=== PATIENT | female | born 1955 | race Caucasian/White ===

== ENCOUNTER 2016-12-17 08:12 | Day surgery (SDC) | payer OTHER ==
--- NOTE | 2016-11-21 07:17 | PCM.HPANE ---
Patient Data Surgeon Admitting Provider: Attending Provider:Anton Arias MD Primary Care Physician:Gabriela Green MD Other Provider: Reason for Visit Barretts Esophagus Ht/WT & BMI Body Mass Index Allergies Coded Allergies: cortisone (Verified Allergy, Intermediate, 11/21/13) prednisone (Verified Allergy, Intermediate, 11/21/13) iodine (Verified Allergy, Mild, Shortness of Breath, 08/16/16) Patient needs to be pretreated for any iodine injections. acetaminophen (Verified Allergy, Unknown, 08/08/15) caffeine (Verified Allergy, Unknown, 11/20/16) codeine (Verified Allergy, Unknown, 08/08/15) ergotamine (Verified Allergy, Unknown, 11/20/16) ketorolac (Verified Allergy, Unknown, 11/20/16) morphine (Verified Allergy, Unknown, 08/08/15) oxycodone (Verified Allergy, Unknown, 08/08/15) shellfish derived (Verified Allergy, Unknown, 08/08/15) theophylline anhydrous (Verified Allergy, Unknown, 08/08/15) tromethamine (Verified Allergy, Unknown, 11/20/16) Uncoded Allergies: CATAGORT (Allergy, Unknown, 01/03/13) Past Anesthesia History Anesthesia History: Positive for:: Anesthesia Reactions (WOKE UP YEARS AGO ), Denies:: Abnormal Airway, Difficult Intubation, Fam Anesthesia Reaction, Fam Malignant Hypertherm, Malignant Hyperthermia Diabetes History Hx Diabetes?: No MRSA MRSA: No Medications Blood Thinner: Aspirin Reported Medications Naproxen Sodium (Aleve)220 Mg Umvempn473 Mg PO BID 12/14/16 Albuterol HFA (Proair HFA)8.5 Gm Hfa.aer.ad2 Puffs INHALATION Q4H #1 INHALER 12/14/16 Fexofenadine (Larisa Allergy)180 Mg Vsvbkf254 Mg PO DAILY Ref 0 11/20/16 Sennosides (Laxative)15 Mg Tab.chew5 Mg PO 11/20/16 Magnesium 200 Mg Eqcggo403 Mg PO 11/20/16 Pravastatin 10 Mg Fcbnyb13 Mg PO HS Ref 0 11/20/16 Prochlorperazine Maleate (Prochlorperazine)10 Mg Tpzwmx35 Mg PO Q8 PRN For Nausea/Vomiting Ref 0 11/20/16 Levothyroxine (Synthroid)100 Mcg Lqrgdw141 Mcg PO DAILY Ref 0 11/20/16 Aspirin 325 Mg Ubisvr132 Mg PO DAILY #1 BOTTLE 08/16/16 Omeprazole 20 Mg Tablet.dr40 Mg PO BID Ref 0 08/08/15 Multivitamin (Multi Vitamin Daily)1 Each Tablet1 Each PO DAILY 30 Days Ref 0 08/08/15 Metoprolol Tartrate 25 Mg Svoghx29 Mg PO BID 30 Days Ref 0 08/08/15 Citalopram 20 Mg Rjalch15 Mg PO DAILY Ref 0 08/08/15 Alprazolam 0.5 Mg Tablet0.5 Mg PO 000 PRN For Anxiety Ref 0 08/08/15 History History of ENT Problems?: No HEENT History: Denies:: Abnormal Airway Difficult Intubation Dysphagia Hearing Problem Hx of Heart Problems?: Yes Cardiovascular History: Positive for:: Hypertension (METROPOLOL) Denies:: AICD Atrial Fibrillation Chest Pain Congestive Heart Failure Irregular Heartbeat Pacemaker Valvular Heart Disease Hx of Respiratory Problem?: Yes Respiratory History: Positive for:: Asthma Pneumonia (MOST RECENT ABOUT 1.5 YRS AGO) Denies:: COPD Cough Hemoptysis Tuberculosis Hx Neurologic Problems?: Yes Neurological History: Positive for:: Headaches (migraines) Denies:: CVA Hx of GI Problems?: Yes Gastrointestinal History: Positive for:: Diverticulitis (6 WKS AGO ) Gastroesphageal Reflux Hiatal Hernia (SLIDING) Denies:: Cirrhosis Gastrointestinal Bleeding Rectal Bleeding Hx of Problems?: No Female Hx: Positive for:: Endometriosis (hx of led to hysterectomy) Denies:: Currently Hx Musculoskeletal Problems?: Yes Musculoskeletal History: Denies:: Joint Replacement Hx of Psycho/Social Problems?: Yes Psycho Social History: Positive for:: Anxiety (PANIC ATTACKS) Denies:: Hx Depression Hx Surgeries?: Yes (COMPLETE HYSTERECTOMY, CHOLEYCYSTECTOMY, ANKLE, WRIST AND FINGER SURGERIES ) Hx Any Other Health Problems?: Yes Other History: Positive for:: Hospitalization Thyroid Disease Denies:: Cancer Endocrine Disease History Blood Transfusions: Denies:: Blood Transfusions Hx Diabetes: No Hx Alcohol Use: Yes ([facility])Hx Substance Use: No Smoking Status: Never Smoker Have You Smoked inLast 12 mo: No Stop/Bang Risk Assessment Category Category 1A: Patient has history of documented sleep apnea, and HAS NOT received any narcotic, sedative or anesthesia administration during this stay. Category 1B: Patient has history of documented sleep apnea, and HAS received any narcotic , sedative or anesthesia administration during this stay Category 2: Patient has SUSPECTED Obstructive Sleep Apnea, and HAS received any narcotic , sedative or anesthesia administration during this stay. Category 3: Patient has SUSPECTED Obstructive Sleep Apnea and HAS NOT received narcotic, sedative or anesthesia administration during this stay. Category 4: Outpatient in Procedural Areas with known sleep apnea or who screen positive for High Risk via the STOP/BANG questionnaire. Plan Impression Patient chart reviewed. Colby Ching MD Nov 21, 2016 07:17 Impression Patient chart reviewed. Colby Ching MD Nov 21, 2016 07:17
[~2016-12-17] VITALS: Ht 170.2 cm; Wt 78.5 kg
[~2016-12-17 08:12] MED LIST: ALBU8.5H2 INHALATION; ALPR0.5T8 PO; ASPI325T32 PO; CITA20TA11 PO; FEXO180T85 PO; LEVO100T97 PO; MAGN200T PO; METO25TA6 PO; MULT-1018 PO; NAPR220C11 PO; OMEP20TA86 PO; PRAV10TA2 PO; PROC10TA PO; SENN15TA11 PO; Sodium Chloride LOK Flush 10 mL Syringe IV PRN; fentaNYL-PF 50 mCg/mL 2 mL Inj IVPUSH PRN
[2016-12-17 08:54] VITALS: BP 129/82; PULSE 65; RESP 16; O2SAT 100
[2016-12-17] MEDS: 0.9% Sodium Chloride 1,000 ML IV PRN ×2 (09:02→10:12)
[2016-12-17 09:58] VITALS: BP 117/67; PULSE 54; RESP 16; O2SAT 98
[2016-12-17 10:00] VITALS: BP 110/74; PULSE 65; RESP 16; O2SAT 96
[2016-12-17 10:10] VITALS: BP 103/72; PULSE 65; RESP 16; O2SAT 95
--- NOTE | 2016-12-17 22:22 | ENDO ---
[address] [address] ENDOSCOPY PROCEDURE PATIENT: URSULA PEREZ : 1955 MR#: [id number] ADMIT: 12/17/2016 JOB ID: [id number] DATE: 12/17/2016 PROCEDURE: Esophagogastroduodenoscopy with biopsies. INDICATIONS: A 61-year-old female with a Schatzki's ring that was biopsied and demonstrated some intestinal metaplasia. Repeat surveillance exam is pursued. EQUIPMENT: GIF H 180 J. SEDATION: 3 mg Versed and 75 mcg fentanyl. COMPLICATIONS: None identified. PROCEDURE INFORMATION: After the risks and benefits were explained, written and verbal informed consent was obtained. The patient was brought into the endoscopy suite and placed into the left lateral decubitus position. Sedation was achieved using the above-stated medications with the addition of oxygen via nasal cannula. The scope was introduced into the mouth through the bite block, and advanced under direct visualization to the level of the second portion of the duodenum. The scope was slowly withdrawn to carefully examine the mucosa for any defects or lesions. Retroflexed views were accomplished in the stomach. The stomach was decompressed. The scope removed from the patient who tolerated the procedure well. FINDINGS: 1. Duodenum: Normal from the bulb through to the second portion. 2. Stomach: No ulcers, no mass lesions, no outlet obstruction. Retroflexed views of the LES disclosed a sliding hiatal hernia. 3. Esophagus: The squamocolumnar junction seemed to correlate with the top of the gastric folds. There was a nonobstructing Schatzki's ring right at the level of the GE junction which was 37 cm from the incisors (incidentally, the diaphragmatic pinchcock was at about 40 cm from the incisors). There was perhaps a very subtle focus of salmon-colored mucosa extending up over the lip of the Schatzki's ring in the 9 o'clock position, and this area was targeted for biopsy. No other significant pathology was apparent. ENDOSCOPIC DIAGNOSES: 1. 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 2. Hiatal hernia. RECOMMENDATIONS: 1. Await histopathology. 2. If Pantoja's is again identified, then surveillance will be arranged for three years' time. 3. Continue anti-reflux therapy.
--- NOTE | 2016-12-18 14:15 | PATH ---
SURGICAL PATHOLOGY Attending Physician:Miles Castro CASE STATUS: Signed Out PATIENT NAME: URSULA PEREZ PID: [id number] : 1955 DATE COLLECTED:12/17/2016 20:34 SPECIMEN: Esophagus, Biopsy CLINICAL HISTORY: THOMAS'S ESOPHAGUS 1). SCHATZKI'S RING FINAL DIAGNOSIS: Biopsy Schatzki's Ring: Squamous mucosa and gastric cardia-type mucosa negative for specialized metaplasia of Thomas's type esophagus. Mild chronic inflammation with reactive epithelial changes but negative for dysplasia and malignancy. Eosinophils are not increased. ICD10 K21.0 GROSS DESCRIPTION: The specimen is received in one formalin filled container labeled with the patient's name, sublabeled "Schatzki's ring" and consists of a 0.3 x 0.2 x 0.2 CM portion of tissue which is entirely submitted in one cassette. 12/17/2016 [facility] ICD-9 CODES: CPT CODES: 1: 74919 Electronically Signed Out Anton Sweeney MD [facility] Pathology [facility] [address], [place] [address] Technical component performed at [facility], [address] [place] [address] Ave[address], [place], [address]
== END 2016-12-17 23:59 | disposition home or self-care (01) ==
LOC: END 23:59
PROVIDERS: ATTEND Internal Medicine Gastroenterology
DX: K22.2 Esophageal obstruction (principal); K44.9 Diaphragmatic hernia without obstruction or gangrene; I10 Essential (primary) hypertension; J45.909 Unspecified asthma, uncomplicated
CPT/HCPCS: 43239; G0500; J2250; J7030

== ENCOUNTER 2017-01-30 13:22 | Emergency (ER) | payer OTHER ==
[~2017-01-30] VITALS: Ht 168.9 cm; Wt 80.9 kg
[~2017-01-30 13:22] MED LIST changes: -Sodium Chloride LOK Flush 10 mL Syringe IV PRN; -fentaNYL-PF 50 mCg/mL 2 mL Inj IVPUSH PRN
[2017-01-30 13:23] VITALS: BP 143/85; PULSE 67; RESP 18; O2SAT 97
--- NOTE | 2017-01-30 13:52 | ED.REPORT ---
HPI-Chest Pain 40 and Over Date of Service Jan 30, 2017 ED Provider: Jose Elias Garay MD The patient is a 61 year old female w/ a hx of GERD, MO, left occipital CVA, ASA , HTN and diverticulitis who presents to the ED due to left neck pain onset yesterday afternoon. The pain started in her neck, then spread into her left jaw and down her left arm. It did not radiate into her chest. She measured her blood pressure at home and it was high. Pain is reproducible with left arm movement and other exertion does not increase her pain. She describes the pain as a, "throbbing, dull, ache." Her current pain is at 3/10 and most severe at 8/ 10. She has never had that type of pain before. She denies SOB, sweating, nausea , vomiting, nausea, and weakness. Pt had a stroke one year ago. There is a family hx of heart disease. It has been several years since her last stress test. Her blood pressure is 125/79 in the room, which the pt confirms is the lowest it's been since yesterday. Nursing Notes Stated Complaint: CARDIAC WORK UP/SENT FROM 'S OFFICE Chief Complaint: Chest Pain Nursing Notes Reviewed: Yes (Celsion, meds reconciled) Allergies: Coded Allergies: cortisone (Verified Allergy, Intermediate, 01/30/17) prednisone (Verified Allergy, Intermediate, 01/30/17) iodine (Verified Allergy, Mild, Shortness of Breath, 01/30/17) Patient needs to be pretreated for any iodine injections. caffeine (Verified Allergy, Unknown, 01/30/17) codeine (Verified Allergy, Unknown, 01/30/17) ergotamine (Verified Allergy, Unknown, 01/30/17) ketorolac (Verified Allergy, Unknown, 01/30/17) morphine (Verified Allergy, Unknown, 01/30/17) oxycodone (Verified Allergy, Unknown, 01/30/17) shellfish derived (Verified Allergy, Unknown, 01/30/17) theophylline anhydrous (Verified Allergy, Unknown, 01/30/17) tromethamine (Verified Allergy, Unknown, 01/30/17) Uncoded Allergies: CATAGORT (Allergy, Unknown, 01/03/13) Scheduled Albuterol HFA (Proair HFA) 8.5 Gm Hfa.aer.ad 2 PUFFS INHALATION Q4H Aspirin (Aspirin) 325 Mg Tablet 325 MG PO DAILY Citalopram (Citalopram) 20 Mg Tablet 20 MG PO DAILY Levothyroxine (Synthroid) 100 Mcg Tablet 100 MCG PO DAILY Metoprolol Tartrate (Metoprolol Tartrate) 25 Mg Tablet 25 MG PO BID Multivitamin (Multi Vitamin Daily) 1 Each Tablet 1 EACH PO DAILY Naproxen Sodium (Aleve) 220 Mg Capsule 220 MG PO BID Omeprazole (Omeprazole) 20 Mg Tablet.dr 40 MG PO BID Pravastatin (Pravastatin) 10 Mg Tablet 10 MG PO HS Scheduled PRN Alprazolam (Alprazolam) 0.5 Mg Tablet 0.5 MG PO 000 PRN PRN For Anxiety Fexofenadine (Larisa Allergy) 180 Mg Tablet 180 MG PO DAILY PRN PRN allergies Prochlorperazine Maleate (Prochlorperazine) 10 Mg Tablet 10 MG PO Q8 PRN PRN For Nausea/Vomiting Miscellaneous Medications Magnesium (Magnesium) 200 Mg Tablet 200 MG PO General Time Seen by MD: 13:51 Chief Complaint Other (left neck pain) Hx Obtained From: Patient Arrived By: Walk-in Sudden in Onset?: Yes Onset Occurred: Yesterday Symptom Duration: Since onset Location: : Neck Radiation: : Arm left: Jaw Severity: Current: Pain level 3 out of 10 Severity: Maximum: Pain level 8 out of 10 Past Medical History Past Medical History 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, on full strength ASA Hypertension, Asthma (exercise induced), Headaches (migraines), Diverticulitis, Gastroesphageal Reflux, Anxiety (panic attacks), Hx Depression, Thyroid Disease Past Surgical History hysterectomy, gall bladder, wrist and hand Reports: Cholecystectomy Smoking History Never Smoker Social History Alcohol Use: "Social" Ambulatory Status Independent Review of Systems Review of Systems Note: high blood pressure Respiratory: Denies: Shortness of breath GI: Denies: Nausea, Vomiting Musculoskeletal: Reports: Extremity pain (left arm), Neck pain Skin: Denies Diaphoresis Neurologic: Denies: Weakness Complete sys rev & neg: except as marked. Physical Exam Initial Vital Signs Vital Signs (First) Date Time Temp Pulse Resp B/P Pulse Ox O2 Delivery O2 Flow Rate FiO2 01/30/17 13:23 36.6 67 18 143/85 97 Room Air Initial VS: Reviewed, Vital signs normal Head / Eyes: Atraumatic, Normocephalic, PERRL ENT: Mucous membranes moist, Conjunctiva normal, No scleral icterus Neck: Supple, Non-tender, Full range of motion Skin: Warm, Dry, No cyanosis Neurologic: Alert, Oriented, Nonfocal Psychiatric: Mood/affect normal, Behavior normal, Normal thought content General/Constitutional: Alert, Cooperative Respiratory / Chest: Atraumatic, Breath sounds NL, No respiratory distress Cardiovascular: Heart rate NL, Regular rhythm, Heart sounds NL Abdomen: Atraumatic, Soft, Non-tender Upper Extremity / MS: No swelling soreness along rotator cuff pain reproduceable along arm Interpretation & Diagnostics Lab Results Interpretation Result Diagram: 01/30/17 1415 01/30/17 1415 Test 01/30/17 14:15 White Blood Count 7.5th/mm3 (3.8-10.1) Red Blood Count 4.25mil/mm3 (3.90-5.20) Hemoglobin 13.2g/dL (12.0-15.6) Hematocrit 40.2% (35.0-46.0) Mean Corpuscular Volume 94.6fL (81-100) Mean Corpuscular Hemoglobin 31.1pg (27.0-35.0) Mean Corpuscular Hemoglobin Concent 32.8% (32.0-37.0) Red Cell Distribution Width 13.9% (12.3-15.4) Platelet Count 225bil/L (150-400) Neutrophils (%) (Auto) 71.0% (40-74) Lymphocytes (%) (Auto) 18.9% (14-46) Monocytes (%) (Auto) 7.3% (4-12) Eosinophils (%) (Auto) 1.9% (0-5) Basophils (%) (Auto) 0.4% (0-3) Sodium Level 142mEq/L (134-144) Potassium Level 4.4mEq/L (3.5-5.2) Chloride Level 104mEq/L (97-108) Carbon Dioxide Level 25mmol/L (18-29) Blood Urea Nitrogen 15mg/dL (8-27) Creatinine 0.76mg/dL (0.57-1.00) Estimat Glomerular Filtration Rate 110mL/min (>59) Glucose Level 91mg/dL (60-99) Calcium Level 9.0mg/dL (8.5-10.1) Magnesium Level 2.0mg/dL (1.6-2.6) Total Bilirubin 0.2mg/dL (0.0-1.2) Aspartate Amino Transf (AST/SGOT) 23U/L (0-50) Alanine Aminotransferase (ALT/SGPT) 15U/L (0-32) Alkaline Phosphatase 49U/L (25-165) Troponin T < 0.010ug/L (0.0-0.011) Total Protein 6.9g/dL (6.4-8.4) Albumin 3.9g/dL (3.4-5.0) Hold Kee Top Tube Received (Received) Lab Results Interpretation: CBC normal CMP normal troponin negative after greater than 16 hours of continuous symptoms ECG Interpretation Time: 14:06 Interpreted by: ED physician Normal ECG Interpretation: Normal sinus rhythm (67) X-Ray Chest Interpretation Chest Xray Interpretation: IMPRESSION: No acute disease Dictated by: Harsha Devlin M.D. on 01/30/2017 at 14:04 Approved by: Harsha eDvlin M.D. on 01/30/2017 at 14:05 View: Portable Interpretation / Wet Read by: Interpret - Radiologist Re-Eval/Medical Decision Med Decision/Clinical Course This is a 61-year-old female who says she was referred in over the complaint of left shoulder and neck discomfort. She thinks his mechanical muscle felt took some NSAIDs which have helped. This shows that yesterday she developed some soreness in her left neck and shoulder. It is worse with turning the head, moving the arm-there is no associated chest pain, shortness breath, diaphoresis , exertional symptoms. She decided to call her doctor to decide whether or not she should be seen, and was referred to come in the ED for evaluation. She does have a prior history of a TIA, but has no prior history of coronary artery disease. She has had routine aspirin earlier today. The pleasant, clinically well-appearing individual in no visible distress. She has normal physical exam. He can reproduce her discomfort with mechanical movement of the shoulder and neck and is along the superior aspects of the rotator cuff. However there is no weakness, there is no trauma there is no cortical signs of dislocation, no cold signs of upper extremities DVT. The patient's heart exam and lung exams normal or no signs of heart failure, no findings of Unisom embolism or evident on exam. EKG has T-wave inversion anteriorly, but is unchanged from 2014. Blood work is normal including a negative troponin. The patient's clinical history and physical exam are highly suggestive of likely muscle skeletal etiology. An unchanged EKG and a troponin which is negative except for 16 hours. Further argue against acute coronary syndrome or alternate etiology. I am not finding indication that additional testing is warranted this time, but careful return precautions are reviewed with the patient should new or worsening symptoms occur. Source of Hx: Old records Differential Diagnosis: Negative: Acute coronary syndrome, Acute myocardial infarct, Dysrhythmia, Esophageal rupture, Gun shot wound chest, Peptic ulcer disease, Pneumomediastinum, Pneumonia, Pneumothorax, Pulmonary edema, Pulmonary embolism Counseled Regarding: Diagnosis, Lab results, Need for follow-up, When/why to return to ED Discharge & Departure Primary Impression: Left shoulder pain Chronicity: acute Qualified Code: M25.512 - Pain in left shoulder Disposition: Home Discharge Condition All VS Reviewed: Yes Condition: Stable Referrals: Gabriela Green MD (PCP) Scribe Attestation Portion of this note were transcribed by Cande Burden. I, Dr. Garay, personally performed the history, physical exam, and medical decision-making: I reviewed and confirmed the accuracy for the information in the transcribed note. Signed by: alma rosa Johnson, 01/30/17 1500 copies to: Gabriela Green MD, Matthew F MD Jan 30, 2017 13:52 Cande Burden Jan 30, 2017 14:08
--- NOTE | 2017-01-30 14:07 | DRSVH ---
PROCEDURE: X-RAY CHEST ONE VIEW, PORTABLE ([id number]) INDICATIONS: CHEST PAIN TECHNIQUE: One view of the chest was acquired. COMPARISON: [facility], , CHEST 2VW, 11/21/2013, 11:30. FINDINGS: Surgical changes and devices: None. Lungs and pleura: No pleural effusions or pneumothorax. Lungs are clear. Mediastinum: Mediastinal contours appear normal. Heart size is normal. Bones and chest wall: No suspicious bony lesions. Overlying soft tissues appear unremarkable. IMPRESSION: No acute disease Dictated by: Harsha Devlin M.D. on 01/30/2017 at 14:04 Approved by: Harsha Devlin M.D. on 01/30/2017 at 14:05
[2017-01-30 14:28] LABS: BASOPHILS % (AUTO) 0.4 % (0-3); EOSINOPHILS % (AUTO) 1.9 % (0-5); MONOCYTES % (AUTO) 7.3 % (4-12); Mean Corpuscular Hemoglobin 31.1 pg (27.0-35.0); Mean Corpuscular Volume 94.6 fL (81-100); Platelet Count 225 bil/L (150-400)
[2017-01-30 15:07] LABS: TROPONIN T < 0.010 ug/L (0.0-0.011)
[2017-01-30 15:35] VITALS: BP 136/81; PULSE 62; RESP 19; O2SAT 95
== END 2017-01-30 15:36 | disposition home or self-care (01) ==
LOC: SED 13:22
DX: M25.512 Pain in left shoulder (principal); M54.2 Cervicalgia; K21.9 Gastro-esophageal reflux disease without esophagitis; I25.2 Old myocardial infarction; I10 Essential (primary) hypertension; J45.909 Unspecified asthma, uncomplicated; Z88.8 Allergy status to other drugs, medicaments and biological substances; Z88.5 Allergy status to narcotic agent; Z91.013 Allergy to seafood; Z79.82 Long term (current) use of aspirin; Z86.73 Personal history of transient ischemic attack (TIA), and cerebral infarction without residual deficits

== ENCOUNTER 2017-03-19 10:37 | Emergency (ER) | payer MEDICARE, OTHER ==
[~2017-03-19] VITALS: Ht 167.6 cm; Wt 81.8 kg
[~2017-03-19 10:37] MED LIST changes: -SENN15TA11 PO
[2017-03-19 10:43] VITALS: BP 131/82; PULSE 71; RESP 18; O2SAT 97
--- NOTE | 2017-03-19 10:47 | ED.REPORT ---
HPI-Abd Pain F 40 and Over Date of Service March 19, 2017 ED Provider: Dr. Terrell Pt is a 61 year old female with a hx of diverticulitis, HTN, asthma, hypothyroidism presenting to the ED complaining of severe abdominal pain onset 5 days ago. Associated symptoms include fever yesterday (102 degrees C), lower back pain, dark urine, nausea and decreased urine volume. Denies bloody stool, vomiting, SOB, chest pain or dysuria currently. Pt is on day 4 of antibiotics. She reports that the last time she had a diverticulitis flare up, they were concerned that she had an abscess. Nursing Notes Stated Complaint: ABDOMINAL/BACK PAIN Chief Complaint: Female Abdominal Pain Nursing Notes Reviewed: Yes Allergies: Coded Allergies: cortisone (Verified Allergy, Intermediate, 01/30/17) prednisone (Verified Allergy, Intermediate, 01/30/17) iodine (Verified Allergy, Mild, Shortness of Breath, 01/30/17) Patient needs to be pretreated for any iodine injections. codeine (Verified Allergy, Unknown, 01/30/17) ergotamine (Verified Allergy, Unknown, 01/30/17) ketorolac (Verified Allergy, Unknown, 01/30/17) morphine (Verified Allergy, Unknown, 01/30/17) oxycodone (Verified Allergy, Unknown, 01/30/17) shellfish derived (Verified Allergy, Unknown, 01/30/17) theophylline anhydrous (Verified Allergy, Unknown, 01/30/17) tromethamine (Verified Allergy, Unknown, 01/30/17) Uncoded Allergies: CATAGORT (Allergy, Unknown, 01/03/13) Scheduled Albuterol HFA (Proair HFA) 8.5 Gm Hfa.aer.ad 2 PUFFS INHALATION Q4H Amoxicillin/Clav K 875-125 mg (Augmentin 875-125 mg) 1 Each Tablet 1 TABLET PO BID Aspirin (Aspirin) 325 Mg Tablet 325 MG PO DAILY Citalopram (Citalopram) 20 Mg Tablet 20 MG PO DAILY Levothyroxine (Synthroid) 100 Mcg Tablet 100 MCG PO DAILY Metoprolol Tartrate (Metoprolol Tartrate) 25 Mg Tablet 25 MG PO BID Multivitamin (Multi Vitamin Daily) 1 Each Tablet 1 EACH PO DAILY Naproxen Sodium (Aleve) 220 Mg Capsule 220 MG PO BID Omeprazole (Omeprazole) 20 Mg Tablet.dr 40 MG PO BID Pravastatin (Pravastatin) 10 Mg Tablet 10 MG PO HS Scheduled PRN Alprazolam (Alprazolam) 0.5 Mg Tablet 0.5 MG PO 000 PRN PRN For Anxiety Fexofenadine (Larisa Allergy) 180 Mg Tablet 180 MG PO DAILY PRN PRN allergies Prochlorperazine Maleate (Prochlorperazine) 10 Mg Tablet 10 MG PO Q8 PRN PRN For Nausea/Vomiting Miscellaneous Medications Magnesium (Magnesium) 200 Mg Tablet 200 MG PO General Time Seen by MD: 10:47 Chief Complaint Abdominal pain Hx Obtained From: Patient Arrived By: Walk-in Sudden in Onset?: No Onset Occurred: 5 days ago Symptom Duration: Since onset Progression since Onset: Constant Location: : Abdomen lower Quality: Painful Severity: Current: Moderate Severity: Maximum: Severe Associated with: Reports: Back pain, Fever (102), Nausea, Denies: Chest pain, Dysuria, Shortness of breath, Vomiting Recent Healthcare: No recent doctor visit, No recent hospitalization Similar Sx Previous: Yes Past Medical History Past Medical History 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, on full strength ASA Hypertension, Asthma (exercise induced), Headaches (migraines), Diverticulitis, Gastroesphageal Reflux, Anxiety (panic attacks), Hx Depression, Thyroid Disease Past Surgical History hysterectomy, gall bladder, wrist and hand Reports: Cholecystectomy Smoking History Never Smoker Social History Alcohol Use: "Social" Ambulatory Status Independent Review of Systems Constitutional: Reports: Fever (102) Respiratory: Denies: Shortness of breath Cardiovascular: Denies: Chest pain GI: Reports: Abdominal pain, Nausea, Denies: Bloody/tarry stool, Vomiting Female: Reports: Urination decreased, Denies: Dysuria Musculoskeletal: Reports: Back pain Complete sys rev & neg: except as marked. Physical Exam Vital Signs Vital Signs (First) Date Time Temp Pulse Resp B/P Pulse Ox O2 Delivery O2 Flow Rate FiO2 03/19/17 10:43 36.3 71 18 131/82 97 Room Air Initial VS: Reviewed Head / Eyes: Atraumatic, Normocephalic, PERRL ENT: Mucous membranes moist, Conjunctiva normal, No scleral icterus Extremities: Vascular intact, Neuro intact, No swelling, No tenderness Skin: Warm, Dry, No cyanosis Neurologic: Alert, Oriented, Nonfocal Psychiatric: Mood/affect normal, Behavior normal, Normal thought content General/Constitutional: Awake, Alert, Well appearing Respiratory / Chest: Breath sounds NL, Breath sounds = bilat, No respiratory distress, No rales, No rhonchi, No wheezing, No stridor Cardiovascular: Heart rate NL, Regular rhythm, Heart sounds NL, Peripheral circulation NL Abdomen: No guarding, No rebound Tenderness/Guarding/Rebound: Positive: Tender LLQ... (Mild) Back: No CVA tenderness Lower Extremity / Pelvis / MS: Neurologic intact, Vascular intact, No edema Interpretation & Diagnostics Lab Results Interpretation Result Diagram: 03/19/17 1115 03/19/17 1115 Test 03/19/17 11:11 03/19/17 11:15 Urine Color Yellow (YELLOW) Urine Appearance Hazy (CLEAR,HAZY) Urine pH 5.5 (5.0-8.0) Urine Specific Berthold 1.030 (1.003-1.035) Urine Protein Tracemg/dL (NEG,TRACE) Urine Glucose (UA) Negativemg/dL (NEGATIVE) Urine Ketones Tracemg/dL (NEGATIVE) Urine Occult Blood Negative (NEGATIVE) Urine Nitrite Negative (NEGATIVE) Urine Bilirubin Negative (NEGATIVE) Urine Urobilinogen Normalmg/dL (NORMAL) Urine Leukocyte Esterase Trace (NEGATIVE) Urine RBC 0-2/hpf (0-2) Urine WBC 0-5/hpf (0-5) Urine Epithelial Cells Occasional/hpf (NONE-MOD) Urine Crystals None seen (NONE SEEN) Urine Bacteria Few/hpf (NONE-FEW) Urine Hyaline Casts None/lpf (NONE) Urine Granular Casts None seen (NONE SEEN) Urine Waxy Casts None seen (NONE SEEN) Urine Red Blood Cell Casts None seen (NONE SEEN) Urine White Blood Cell Casts None seen (NONE SEEN) Urine Mucus Present (None Seen) Urine Trichomonas None seen (NONE SEEN) Urine Yeast None (NONE SEEN) Urinalysis Comment None Urine Culture Reflexed Indicated White Blood Count 9.6th/mm3 (3.8-10.1) Red Blood Count 4.59mil/mm3 (3.90-5.20) Hemoglobin 14.3g/dL (12.0-15.6) Hematocrit 43.0% (35.0-46.0) Mean Corpuscular Volume 93.7fL (81-100) Mean Corpuscular Hemoglobin 31.2pg (27.0-35.0) Mean Corpuscular Hemoglobin Concent 33.3% (32.0-37.0) Red Cell Distribution Width 14.1% (12.3-15.4) Platelet Count 197bil/L (150-400) Neutrophils (%) (Auto) 74.7% (40-74) Lymphocytes (%) (Auto) 12.0% (14-46) Monocytes (%) (Auto) 10.9% (4-12) Eosinophils (%) (Auto) 1.7% (0-5) Basophils (%) (Auto) 0.3% (0-3) Sodium Level 135mEq/L (134-144) Potassium Level 4.0mEq/L (3.5-5.2) Chloride Level 97mEq/L (97-108) Carbon Dioxide Level 24mmol/L (18-29) Blood Urea Nitrogen 18mg/dL (8-27) Creatinine 0.92mg/dL (0.57-1.00) Estimat Glomerular Filtration Rate 89mL/min (>59) Glucose Level 101mg/dL (60-99) Calcium Level 9.6mg/dL (8.5-10.1) Total Bilirubin 0.9mg/dL (0.0-1.2) Aspartate Amino Transf (AST/SGOT) 23U/L (0-50) Alanine Aminotransferase (ALT/SGPT) 15U/L (0-32) Alkaline Phosphatase 63U/L (25-165) Total Protein 8.1g/dL (6.4-8.4) Albumin 4.5g/dL (3.4-5.0) CT Abd / Pelvis Interpretation IMPRESSION: 1. Early sigmoid diverticulitis without associated abscess or bowel obstruction. 2. Nonspecific prominence of the wall of the proximal small bowel may be within normal limits for this patient and is similar to prior exams. Enteritis may also have this appearance, in the correct clinical setting. Dictated by: Onel Liao M.D. on 03/19/2017 at 13:54 Study type: Abdominal CT no contrast Interpretation / Wet Read by: Interpret - Radiologist Re-Eval/Medical Decision Med Decision/Clinical Course Diverticulitis without compensation, recommend continue Augmentin. Return and follow-up precautions given. Re-Evaluation/Progress #1: Time of Eval: 12:15 Patient Status: Condition improved Re-Evaluation/Progress Note: Pt reports that this pain is very similar to her previous episode in May, when she had a CT scan. Re-Evaluation/Progress #2: Time of Eval: 15:00 Patient Status: Condition improved Re-Evaluation/Progress Note: Discussed plan for discahrge. Pt understands and agrees. Counseled Regarding: Diagnosis, Lab results, Need for follow-up, When/why to return to ED Discharge & Departure Primary Impression: Diverticulitis Diverticulitis site: unspecified part of intestinal tract Diverticulitis bleeding: without bleeding Diverticulitis complication: without perforation or abscess Qualified Code: K57.92 - Diverticulitis of intestine, part unspecified, without perforation or abscess without bleeding Disposition: Home Discharge Condition All VS Reviewed: Yes Condition: Improved Additional Instructions: You have diverticulitis without abscess. Continue Augmentin. Use Tylenol for pain. Follow-up with your regular doctor or return to the ER as needed if worse. Referrals: Gabriela Green MD (PCP) Mary Attestation Portions of this note were transcribed by Kassy Ha. I, Dr. Terrell personally performed the history, physical exam and medical decision-making; I reviewed and confirmed the accuracy of the information in the transcribed note. Signed by: Mary Cisneros, 03/19/2017 at 1525. copies to: Gabriela Green MD, Timothy S DO March 19, 2017 10:47 KASSY HA March 19, 2017 11:13
[2017-03-19] MEDS ORDERED: 0.9% Sodium Chloride 1,000 ML IV ONE (11:15)
[2017-03-19 11:37] LABS: APPEARANCE,URINE HAZY (CLEAR,HAZY); COLOR,URINE YELLOW (YELLOW); PH,URINE 5.5 (5.0-8.0)
[2017-03-19 11:38] LABS: BASOPHILS % (AUTO) 0.3 % (0-3); EOSINOPHILS % (AUTO) 1.7 % (0-5); MONOCYTES % (AUTO) 10.9 % (4-12); Mean Corpuscular Hemoglobin 31.2 pg (27.0-35.0); Mean Corpuscular Volume 93.7 fL (81-100); NEUTROPHILS % (AUTO) 74.7 % (40-74); Platelet Count 197 bil/L (150-400)
[2017-03-19 11:39] LABS: OCCULT BLOOD,URINE NEGATIVE (NEGATIVE); UROBILINOGEN,URINE NORMAL (NORMAL)
--- NOTE | 2017-03-19 15:02 | DRSVH ---
PROCEDURE: CT ABDOMEN AND PELVIS WITHOUT CONTRAST ([id number]) INDICATIONS: lower abd pain, fever, h/o abscess TECHNIQUE: Noncontrast 5 mm thick sections acquired from the diaphragms to the symphysis. 5 mm coronal and sagi ttal reformats were then performed. For radiation dose reduction, the following was used: automated exposure control, adjustment of mA and/or kV according to patient size. COMPARISON: [facility], CT, CT ABD PELVIS WO CON, 05/27/2016, 14:25. [facility], CT, CT ABD PELVIS WO CON, 06/13/2015, 17:08. FINDINGS: Image quality: Diagnostic ABDOMEN: Lung bases: Lung bases are clear. Heart size is normal. Solid organs: The liver, spleen, adrenals, kidneys, and pancreas are similar to the previous exam. T hese organs are not well evaluated without contrast. Peritoneum and bowel: The stomach is unremarkable. There is mild prominence of the wall of the duode num and jejunum without significant dilatation of the bowel loops. The ilial bowel loops are unremar kable and decompressed. Contrast is seen within the colon. Extensive colonic diverticulosis is most pronounced within the sigmoid colon. At the junction of the descending and sigmoid colon there is m ild inflammation present within the adjacent mesentery with a tiny amount of adjacent free fluid. Th ere is no abscess or loculated fluid collection. No free air is appreciated. Nodes and vessels: No retroperitoneal or mesenteric adenopathy by size criteria. Aorta and inferior vena cava are normal in caliber. There is mild aortic atherosclerosis. Bones: No age-appropriate degenerative changes of the spine are present. No acute fractures or suspi cious osseous lesions are evident. PELVIS: Genitourinary: Bladder wall thickness is normal. Miscellaneous: No inguinal hernias or adenopathy. Bones: No suspicious bony lesions. No acute pelvic fractures are present. IMPRESSION: 1. Early sigmoid diverticulitis without associated abscess or bowel obstruction. 2. Nonspecific prominence of the wall of the proximal small bowel may be within normal limits for th is patient and is similar to prior exams. Enteritis may also have this appearance, in the correct cl inical setting. Dictated by: Onel Liao M.D. on 03/19/2017 at 13:54 Approved by: Onel Liao M.D. on 03/19/2017 at 14:00
[2017-03-19] MEDS ORDERED: AMOX-366 PO (15:10)
== END 2017-03-19 15:21 | disposition home or self-care (01) ==
LOC: SED 10:37
DX: K57.92 Diverticulitis of intestine, part unspecified, without perforation or abscess without bleeding (principal); I10 Essential (primary) hypertension; J45.909 Unspecified asthma, uncomplicated; E03.9 Hypothyroidism, unspecified; K21.9 Gastro-esophageal reflux disease without esophagitis; Z88.5 Allergy status to narcotic agent; Z88.8 Allergy status to other drugs, medicaments and biological substances; Z91.041 Radiographic dye allergy status
CPT/HCPCS: 36415; 74176; 80053; 81000; 85025; 87086; 96360; 99285; J7030; Q9967